=== PATIENT | male | born 1940 | race Caucasian/White ===

== ENCOUNTER → 2020-09-10 | Day surgery (SDC) | payer MEDICARE ==
[~2020-09-10] MED LIST: BACTRIM DS TAB1 EAC1 PO; COREG6.25 MG PO; OMEPRAZOLE 20 M20 M1 PO; ROSUVASTATIN CA10 MG PO
[2020-09-10 12:57] LABS: HEMATOCRIT 41.7 % (42.0-52.0); HEMOGLOBIN 14.4 gm/dL (14.0-18.0); MCH 31.5 pg (26.0-34.0); MCHC 34.4 g/dL (28.0-37.0); MCV 91.6 fL (80.0-100.0); MPV 7.3 fl. (7.2-11.1); RBC 4.56 mil/uL (4.50-6.00); RDW-CV 13.1 % (10.5-14.5); WBC 35.7 thou/uL (4.0-11.0)
[2020-09-10 13:08] LABS: CALCIUM 8.9 mg/dL (8.5-10.1); CREATININE 1.1 mg/dL (0.6-1.3); POTASSIUM 4.9 mmol/L (3.5-5.1)
--- NOTE | 2020-09-10 16:51 | OP ---
[address] [address] OPERATIVE REPORT Name: TAMMI COSME Room: [facility]#: [id number] Admission: 09/10/20 Attend Phys: Sim Lenog MD Discharge: Date of : 36 Report #: [id number] THIS REPORT FOR: cc: Delores Castañeda MD, Katrina MD Haggard,Sim Velazquez MD ~ DOC #: [id number] Sim Leong MD DATE OF SURGERY: 09/10/2020 PREOPERATIVE DIAGNOSIS: Urge incontinence. POSTOPERATIVE DIAGNOSIS: Urge incontinence. PROCEDURE: Cystoscopy with chemodenervation of the bladder with 100 units of Botox. STAFF SURGEON: Sim Leong MD FIRST COOK: None. ANESTHESIA: General. ESTIMATED BLOOD LOSS: Trace. COMPLICATIONS: None. SPECIMENS: None. DRAINS: None. INDICATIONS: The patient is an 79-year-old white male with significant urge incontinence for the last 5 years has progressively been gotten worse. He had failed medical management or attempt with Myrbetriq thought that it helped a little bit. 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 He was counseled regarding treatment options, elected for definitive cystoscopy with chemodenervation with Botox. After the risks and benefits of the procedure were explained, informed consent was obtained. OPERATIVE PROCEDURE: The patient was taken to the operating room, comfortably placed in the dorsal lithotomy position under adequate general anesthesia. He was sterilely prepped and draped in standard fashion exposing only the genitalia. Appropriate timeout was carried out and all were in agreement. A 22-Greek cystoscope was placed in the urethra, anterior urethra normal, sphincter intact. Prostate shows some bilobar [place]static [place] [id number] OPERATIVE REPORT Name: TAMMI COSME Room: [facility]#: [id number] Admission: 09/10/20 Attend Phys: Sim Leong MD Discharge: Date of : 36 Report #: [id number] was systematically viewed. Both ureteral orifices were identified normal. No bladder calculi seen or foreign bodies. The mucosa was smooth. Mild to moderate trabeculation was seen. There was 100 units of Botox reconstituted in 9 mL of injectable saline. Standard needle was primed with Botox solution. There were 15 injections made in the posterior wall at approximately 0.5 mL each until the entire 900 mL was injected, spaced for right across the posterior wall and inferior aspect of the posterior wall 0.25% with 4 injections, 3/4 away of the posterior wall and three injections across the dome. No sign of bleeding in the sites. The bladder drained. Cystoscope was removed. He tolerated this extremely well. He was extubated in the operating room, transferred to [facility] with assistance and went to recovery in stable condition. We will see him back in our office in a month for reevaluation. Sim Leong MD KH/POLI <ELECTRONICALLY SIGNED> By: Sim Leong MD 09/10/20 1651 1348 [id number] Leong MD /nt
--- NOTE | 2020-09-11 10:51 | EKG ---
[place] [address] ELECTROCARDIOGRAM REPORT Name: TAMMI COSME Room: [facility]#: [id number] Admission: 09/10/20 Attend Phys: Sim Leong MD Discharge: Date of : 36 Date of Service: 09/10/20 1241 Report #: [id number] THIS REPORT FOR: //name// [facility] Test Date: 2020-09-10 Test Time: 12:41:56 Pat Name: TAMMI COSME Department: Room: Gender: M [employer] Member: Leti ARGUETA : 1940 Requested By: Sim Leong Order Number: [id number] MD: Aly Pringle Measurements Intervals [place] Rate: 62 P: 2 [place]: 223 QRS: -16 QRSD: 100 T: 42 QT: 428 QTc: 435 Interpretive Statements Sinus rhythm Prolonged [place] interval Borderline left axis deviation No previous ECG available for comparison Electronically Signed On 09-11-2020 10:51:22 CDT by Aly Pringle [email or web address] <ELECTRONICALLY SIGNED> By: Aly Pringle MD, [facility] 09/11/20 1051 1241 1241 Aly Pringle MD, [facility] /EPI
== END | disposition home or self-care (01) ==
LOC: M.SUR 11:40
PROVIDERS: ATTEND Urology
DX: N39.41 Urge incontinence (principal); N32.89 Other specified disorders of bladder; N40.1 Benign prostatic hyperplasia with lower urinary tract symptoms; Z98.890 Other specified postprocedural states; Z79.899 Other long term (current) drug therapy